=== PATIENT | female | born 1940 | race Two or more races ===

== ENCOUNTER 2017-05-22 06:52 | Outpatient (CLI) | payer OTHER | END 2017-05-22 07:06 | disposition home or self-care (01) | LOC: LAB 06:52 | DX: E06.3 Autoimmune thyroiditis (principal); C50.211 Malignant neoplasm of upper-inner quadrant of right female breast; Z90.11 Acquired absence of right breast and nipple; I10 Essential (primary) hypertension; E78.4 Other hyperlipidemia; E03.8 Other specified hypothyroidism; J45.20 Mild intermittent asthma, uncomplicated; E55.9 Vitamin D deficiency, unspecified; D50.8 Other iron deficiency anemias; D51.8 Other vitamin B12 deficiency anemias; R97.0 Elevated carcinoembryonic antigen [CEA]; R97.8 Other abnormal tumor markers; E78.00 Pure hypercholesterolemia, unspecified; N39.0 Urinary tract infection, site not specified ==

== ENCOUNTER 2017-07-15 13:35 | Inpatient (IN) | payer OTHER ==
[~2017-07-15] VITALS: Ht 61 cm; Wt 5.0 kg
[2017-07-15] MEDS ORDERED: NORVASC5 MG PO (13:57)
[2017-07-15] MEDS ORDERED: REMINYL8 MG PO (13:58)
[2017-07-15] MEDS ORDERED: METFORMIN HCL500 M3 PO (13:58)
[2017-07-15] MEDS ORDERED: PRAVASTATIN SOD20 MG PO (13:58)
[2017-07-22] MEDS ORDERED: AMOX-CLAV 875-1 EACH PO (10:46)
== END 2017-07-22 12:39 | disposition home or self-care (01) | DRG 689 ==
LOC: ER 13:35 → SEC-K 22:49 → MEDI 07-16 17:09
PROC: BW21ZZZ Computerized Tomography (CT Scan) of Abdomen and Pelvis (ICD-10-PCS; principal; 2017-07-16)
PROC: 02HV33Z Insertion of Infusion Device into Superior Vena Cava, Percutaneous Approach (ICD-10-PCS; 2017-07-16)
PROC: B246ZZZ Ultrasonography of Right and Left Heart (ICD-10-PCS; 2017-07-17)
DX: N10 Acute pyelonephritis (principal); A40.1 Sepsis due to streptococcus, group B; E11.9 Type 2 diabetes mellitus without complications; E78.4 Other hyperlipidemia; I10 Essential (primary) hypertension

== ENCOUNTER 2017-07-25 14:31 | Emergency (ER) | payer OTHER ==
[~2017-07-25] VITALS: Ht 157.5 cm; Wt 72.1 kg
[~2017-07-25 14:31] MED LIST: AMOX-CLAV 875-1 EACH PO; METFORMIN HCL500 M3 PO; NORVASC5 MG PO; PRAVASTATIN SOD20 MG PO; REMINYL8 MG PO
== END 2017-07-25 19:10 | disposition home or self-care (01) ==
LOC: ER 14:31
DX: M54.31 Sciatica, right side (principal); R10.13 Epigastric pain

== ENCOUNTER 2017-08-21 10:22 | Outpatient (CLI) | payer OTHER | END 2017-08-21 10:30 | disposition home or self-care (01) | LOC: RAD 10:22 | DX: N20.0 Calculus of kidney (principal) ==

== ENCOUNTER → 2017-08-27 06:33 | Outpatient (CLI) | payer OTHER | END | disposition home or self-care (01) | LOC: LAB 06:33 | DX: C50.211 Malignant neoplasm of upper-inner quadrant of right female breast (principal); Z90.11 Acquired absence of right breast and nipple; I10 Essential (primary) hypertension; E03.8 Other specified hypothyroidism; J45.20 Mild intermittent asthma, uncomplicated; E55.9 Vitamin D deficiency, unspecified; D50.8 Other iron deficiency anemias; D51.8 Other vitamin B12 deficiency anemias; R97.0 Elevated carcinoembryonic antigen [CEA]; R97.8 Other abnormal tumor markers; E78.4 Other hyperlipidemia; R73.09 Other abnormal glucose ==

== ENCOUNTER 2017-09-01 07:21 | Outpatient (CLI) | payer OTHER | END 2017-09-01 07:24 | disposition home or self-care (01) | LOC: SONOGRAMA 07:21 → MAMO-SONO 10:45 | DX: M25.571 Pain in right ankle and joints of right foot (principal) ==

== ENCOUNTER 2017-11-24 07:00 | Outpatient (CLI) | payer OTHER | END 2017-11-24 07:07 | disposition home or self-care (01) | LOC: LAB 07:00 | DX: E11.9 Type 2 diabetes mellitus without complications (principal); I10 Essential (primary) hypertension; E78.00 Pure hypercholesterolemia, unspecified; D64.89 Other specified anemias; E55.9 Vitamin D deficiency, unspecified; R82.79 Other abnormal findings on microbiological examination of urine; C50.211 Malignant neoplasm of upper-inner quadrant of right female breast; Z90.11 Acquired absence of right breast and nipple; E78.4 Other hyperlipidemia; E03.8 Other specified hypothyroidism; J45.20 Mild intermittent asthma, uncomplicated; D50.8 Other iron deficiency anemias; D51.8 Other vitamin B12 deficiency anemias; K90.89 Other intestinal malabsorption; R97.0 Elevated carcinoembryonic antigen [CEA]; R97.8 Other abnormal tumor markers; E11.42 Type 2 diabetes mellitus with diabetic polyneuropathy; N39.0 Urinary tract infection, site not specified ==

== ENCOUNTER → 2017-12-28 06:07 | Outpatient (CLI) | payer OTHER | END | disposition home or self-care (01) | LOC: LAB 06:07 | DX: E11.9 Type 2 diabetes mellitus without complications (principal); Z12.11 Encounter for screening for malignant neoplasm of colon; D64.89 Other specified anemias; E03.8 Other specified hypothyroidism; N95.1 Menopausal and female climacteric states; I10 Essential (primary) hypertension; C51.9 Malignant neoplasm of vulva, unspecified; N30.00 Acute cystitis without hematuria; E83.51 Hypocalcemia; A64 Unspecified sexually transmitted disease; R97.8 Other abnormal tumor markers ==

== ENCOUNTER 2018-01-21 07:39 | Outpatient (CLI) | payer OTHER | END 2018-01-21 09:12 | disposition home or self-care (01) | LOC: MAMO-SONO 07:39 | DX: C50.411 Malignant neoplasm of upper-outer quadrant of right female breast (principal) ==

== ENCOUNTER 2018-02-17 07:09 | Outpatient (CLI) | payer OTHER | END 2018-02-17 07:13 | disposition home or self-care (01) | LOC: LAB 07:09 | DX: C50.211 Malignant neoplasm of upper-inner quadrant of right female breast (principal); Z90.11 Acquired absence of right breast and nipple; E03.8 Other specified hypothyroidism; J45.20 Mild intermittent asthma, uncomplicated; D50.8 Other iron deficiency anemias; R97.0 Elevated carcinoembryonic antigen [CEA]; R97.8 Other abnormal tumor markers; I11.9 Hypertensive heart disease without heart failure; E83.42 Hypomagnesemia; E78.2 Mixed hyperlipidemia ==

== ENCOUNTER 2018-06-14 07:41 | Outpatient (CLI) | payer OTHER | END 2018-06-14 13:26 | disposition home or self-care (01) | LOC: LAB 07:41 | DX: E03.8 Other specified hypothyroidism (principal); E11.9 Type 2 diabetes mellitus without complications; I10 Essential (primary) hypertension; E78.00 Pure hypercholesterolemia, unspecified; C50.211 Malignant neoplasm of upper-inner quadrant of right female breast; Z90.11 Acquired absence of right breast and nipple; J45.20 Mild intermittent asthma, uncomplicated; E55.9 Vitamin D deficiency, unspecified; D50.8 Other iron deficiency anemias; D51.8 Other vitamin B12 deficiency anemias; R97.0 Elevated carcinoembryonic antigen [CEA]; K90.89 Other intestinal malabsorption; E11.8 Type 2 diabetes mellitus with unspecified complications; E78.49 Other hyperlipidemia ==

== ENCOUNTER 2018-10-12 06:40 | Outpatient (CLI) | payer OTHER | END 2018-10-12 06:48 | disposition home or self-care (01) | LOC: LAB 06:40 | DX: I10 Essential (primary) hypertension (principal); E11.9 Type 2 diabetes mellitus without complications; E55.9 Vitamin D deficiency, unspecified; C50.211 Malignant neoplasm of upper-inner quadrant of right female breast; Z90.11 Acquired absence of right breast and nipple; E78.49 Other hyperlipidemia; E03.8 Other specified hypothyroidism; J45.20 Mild intermittent asthma, uncomplicated; D50.8 Other iron deficiency anemias; D51.8 Other vitamin B12 deficiency anemias; K90.89 Other intestinal malabsorption; R97.0 Elevated carcinoembryonic antigen [CEA]; R97.8 Other abnormal tumor markers ==

== ENCOUNTER 2019-01-24 06:33 | Outpatient (CLI) | payer OTHER | END 2019-01-24 06:40 | disposition home or self-care (01) | LOC: LAB 06:33 | DX: C50.211 Malignant neoplasm of upper-inner quadrant of right female breast (principal); Z90.11 Acquired absence of right breast and nipple; I10 Essential (primary) hypertension; E78.49 Other hyperlipidemia; E03.8 Other specified hypothyroidism; J45.20 Mild intermittent asthma, uncomplicated; E55.9 Vitamin D deficiency, unspecified; D50.8 Other iron deficiency anemias; D51.8 Other vitamin B12 deficiency anemias; R97.0 Elevated carcinoembryonic antigen [CEA]; R97.8 Other abnormal tumor markers; E78.00 Pure hypercholesterolemia, unspecified; E11.9 Type 2 diabetes mellitus without complications ==

== ENCOUNTER 2019-01-24 07:21 | Outpatient (CLI) | payer OTHER | END 2019-01-24 07:23 | disposition home or self-care (01) | LOC: MAMO-SONO 07:21 | DX: Z85.3 Personal history of malignant neoplasm of breast (principal) ==

== ENCOUNTER → 2019-06-18 07:08 | Outpatient (CLI) | payer OTHER | END | disposition home or self-care (01) | LOC: LAB 07:08 | DX: D50.8 Other iron deficiency anemias (principal); I10 Essential (primary) hypertension; C50.211 Malignant neoplasm of upper-inner quadrant of right female breast; Z90.11 Acquired absence of right breast and nipple; E78.6 Lipoprotein deficiency; E03.8 Other specified hypothyroidism; J45.20 Mild intermittent asthma, uncomplicated; E55.9 Vitamin D deficiency, unspecified; D51.8 Other vitamin B12 deficiency anemias; R97.0 Elevated carcinoembryonic antigen [CEA]; R97.8 Other abnormal tumor markers; E78.2 Mixed hyperlipidemia ==

== ENCOUNTER 2019-08-08 09:54 | Outpatient (CLI) | payer OTHER | END 2019-08-08 10:05 | disposition home or self-care (01) | LOC: RAD 09:54 | DX: N28.1 Cyst of kidney, acquired (principal); N20.0 Calculus of kidney ==

== ENCOUNTER → 2019-08-08 11:31 | Outpatient (CLI) | payer OTHER | END | disposition home or self-care (01) | LOC: LAB 11:31 | DX: N20.0 Calculus of kidney (principal); E26.09 Other primary hyperaldosteronism ==

== ENCOUNTER 2019-11-25 07:10 | Outpatient (CLI) | payer OTHER | END 2019-11-25 15:00 | disposition home or self-care (01) | LOC: LAB 07:10 | PROVIDERS: ATTEND Internal Medicine Hematology & Oncology | DX: D50.8 Other iron deficiency anemias (principal); I10 Essential (primary) hypertension; D51.8 Other vitamin B12 deficiency anemias; E55.9 Vitamin D deficiency, unspecified; E03.8 Other specified hypothyroidism; C50.919 Malignant neoplasm of unspecified site of unspecified female breast; R97.8 Other abnormal tumor markers; R97.0 Elevated carcinoembryonic antigen [CEA]; C50.211 Malignant neoplasm of upper-inner quadrant of right female breast; Z90.11 Acquired absence of right breast and nipple; E78.49 Other hyperlipidemia; J45.20 Mild intermittent asthma, uncomplicated ==

== ENCOUNTER 2020-01-26 08:24 | Outpatient (CLI) | payer OTHER | END 2020-01-26 08:35 | disposition home or self-care (01) | LOC: MAMO-SONO 08:24 | PROVIDERS: ATTEND Specialist | DX: Z85.3 Personal history of malignant neoplasm of breast (principal); N64.59 Other signs and symptoms in breast ==

== ENCOUNTER 2020-02-08 13:18 | Outpatient (CLI) | payer OTHER | END 2020-02-08 13:19 | disposition home or self-care (01) | LOC: SONOGRAMA 13:18 → MAMO-SONO 14:25 | PROVIDERS: ATTEND Specialist | DX: D24.2 Benign neoplasm of left breast (principal); R92.8 Other abnormal and inconclusive findings on diagnostic imaging of breast ==

== ENCOUNTER → 2020-03-05 06:45 | Outpatient (CLI) | payer OTHER | END | disposition home or self-care (01) | LOC: LAB 06:45 | PROVIDERS: ATTEND Internal Medicine Hematology & Oncology | DX: I10 Essential (primary) hypertension (principal); E78.00 Pure hypercholesterolemia, unspecified; E11.9 Type 2 diabetes mellitus without complications; E03.8 Other specified hypothyroidism; D50.8 Other iron deficiency anemias; C50.919 Malignant neoplasm of unspecified site of unspecified female breast; R97.8 Other abnormal tumor markers; R97.0 Elevated carcinoembryonic antigen [CEA]; C50.211 Malignant neoplasm of upper-inner quadrant of right female breast; Z90.11 Acquired absence of right breast and nipple; E78.49 Other hyperlipidemia; J45.20 Mild intermittent asthma, uncomplicated; E55.9 Vitamin D deficiency, unspecified ==

== ENCOUNTER 2020-08-29 06:49 | Outpatient (CLI) | payer OTHER | END 2020-08-29 06:53 | disposition home or self-care (01) | LOC: MAMO-SONO 06:49 | PROVIDERS: ATTEND Specialist | DX: Z12.31 Encounter for screening mammogram for malignant neoplasm of breast (principal); Z87.898 Personal history of other specified conditions; D24.1 Benign neoplasm of right breast; Z85.3 Personal history of malignant neoplasm of breast ==

== ENCOUNTER 2020-09-24 06:21 | Outpatient (CLI) | payer OTHER | END 2020-09-24 06:22 | disposition home or self-care (01) | LOC: LAB 06:21 | PROVIDERS: ATTEND Internal Medicine Hematology & Oncology | DX: D50.8 Other iron deficiency anemias (principal); I10 Essential (primary) hypertension; R74.02 Elevation of levels of lactic acid dehydrogenase [LDH]; K76.89 Other specified diseases of liver; D51.8 Other vitamin B12 deficiency anemias; C50.919 Malignant neoplasm of unspecified site of unspecified female breast; R97.8 Other abnormal tumor markers; R97.0 Elevated carcinoembryonic antigen [CEA]; C50.211 Malignant neoplasm of upper-inner quadrant of right female breast; Z90.11 Acquired absence of right breast and nipple; E78.5 Hyperlipidemia, unspecified; E03.9 Hypothyroidism, unspecified; J45.20 Mild intermittent asthma, uncomplicated; E55.9 Vitamin D deficiency, unspecified ==

== ENCOUNTER 2020-11-16 07:40 | Outpatient (CLI) | payer OTHER | END 2020-11-16 07:41 | disposition home or self-care (01) | LOC: NUCLEAR 07:40 | PROVIDERS: ATTEND Internal Medicine Cardiovascular Disease | DX: I50.1 Left ventricular failure, unspecified (principal); I25.9 Chronic ischemic heart disease, unspecified | CPT/HCPCS: 78452; 93017; A9500; J0153 ==

== ENCOUNTER 2020-12-13 07:43 | Outpatient (CLI) | payer OTHER | END 2020-12-13 07:46 | disposition home or self-care (01) | LOC: RAD 07:43 | PROVIDERS: ATTEND Internal Medicine Pulmonary Disease | DX: J45.31 Mild persistent asthma with (acute) exacerbation (principal); R06.02 Shortness of breath ==

== ENCOUNTER 2021-04-11 06:34 | Outpatient (CLI) | payer OTHER | END 2021-04-11 06:36 | disposition home or self-care (01) | LOC: LAB 06:34 | PROVIDERS: ATTEND Internal Medicine Hematology & Oncology | DX: E03.8 Other specified hypothyroidism (principal); D50.8 Other iron deficiency anemias; I10 Essential (primary) hypertension; R74.02 Elevation of levels of lactic acid dehydrogenase [LDH]; K76.89 Other specified diseases of liver; D51.8 Other vitamin B12 deficiency anemias; E55.9 Vitamin D deficiency, unspecified; C50.919 Malignant neoplasm of unspecified site of unspecified female breast; R97.8 Other abnormal tumor markers; R97.0 Elevated carcinoembryonic antigen [CEA]; C50.211 Malignant neoplasm of upper-inner quadrant of right female breast; Z90.11 Acquired absence of right breast and nipple; E78.49 Other hyperlipidemia; J45.20 Mild intermittent asthma, uncomplicated ==

== ENCOUNTER 2021-09-02 07:16 | Outpatient (CLI) | payer OTHER | END 2021-09-02 07:18 | disposition home or self-care (01) | LOC: MAMO-SONO 07:16 | PROVIDERS: ATTEND Specialist | DX: Z90.11 Acquired absence of right breast and nipple (principal); Z85.3 Personal history of malignant neoplasm of breast ==

== ENCOUNTER 2021-10-12 07:09 | Outpatient (CLI) | payer OTHER | END 2021-10-12 07:13 | disposition home or self-care (01) | LOC: LAB 07:09 | PROVIDERS: ATTEND Internal Medicine Hematology & Oncology | DX: D50.8 Other iron deficiency anemias (principal); I10 Essential (primary) hypertension; R74.02 Elevation of levels of lactic acid dehydrogenase [LDH]; K76.89 Other specified diseases of liver; C50.919 Malignant neoplasm of unspecified site of unspecified female breast; R97.8 Other abnormal tumor markers; C50.211 Malignant neoplasm of upper-inner quadrant of right female breast; Z90.11 Acquired absence of right breast and nipple; E78.5 Hyperlipidemia, unspecified; E03.8 Other specified hypothyroidism; J45.20 Mild intermittent asthma, uncomplicated; E55.9 Vitamin D deficiency, unspecified; E06.3 Autoimmune thyroiditis; E11.8 Type 2 diabetes mellitus with unspecified complications ==

== ENCOUNTER 2022-04-15 06:37 | Outpatient (CLI) | payer OTHER | END 2022-04-15 06:39 | disposition home or self-care (01) | LOC: LAB 06:37 | PROVIDERS: ATTEND Internal Medicine Hematology & Oncology | DX: D50.8 Other iron deficiency anemias (principal); I10 Essential (primary) hypertension; R74.02 Elevation of levels of lactic acid dehydrogenase [LDH]; K76.89 Other specified diseases of liver; C50.919 Malignant neoplasm of unspecified site of unspecified female breast; R97.8 Other abnormal tumor markers; R97.0 Elevated carcinoembryonic antigen [CEA]; D51.8 Other vitamin B12 deficiency anemias; E55.9 Vitamin D deficiency, unspecified; E03.8 Other specified hypothyroidism; E78.5 Hyperlipidemia, unspecified; E11.9 Type 2 diabetes mellitus without complications; E78.00 Pure hypercholesterolemia, unspecified; I11.9 Hypertensive heart disease without heart failure; E03.9 Hypothyroidism, unspecified ==

== ENCOUNTER 2022-09-25 10:14 | Outpatient (CLI) | payer OTHER | END 2022-09-25 10:24 | disposition home or self-care (01) | LOC: MAMO-SONO 10:14 | PROVIDERS: ATTEND Specialist | DX: Z90.11 Acquired absence of right breast and nipple (principal); Z85.3 Personal history of malignant neoplasm of breast ==

== ENCOUNTER 2022-10-11 07:04 | Outpatient (CLI) | payer OTHER | END 2022-10-11 07:05 | disposition home or self-care (01) | LOC: LAB 07:04 | PROVIDERS: ATTEND Internal Medicine Hematology & Oncology | DX: D50.8 Other iron deficiency anemias (principal); I10 Essential (primary) hypertension; R74.02 Elevation of levels of lactic acid dehydrogenase [LDH]; K76.89 Other specified diseases of liver; D51.8 Other vitamin B12 deficiency anemias; C50.919 Malignant neoplasm of unspecified site of unspecified female breast; R97.8 Other abnormal tumor markers; C50.211 Malignant neoplasm of upper-inner quadrant of right female breast; R97.0 Elevated carcinoembryonic antigen [CEA]; Z90.11 Acquired absence of right breast and nipple; E78.5 Hyperlipidemia, unspecified; E03.8 Other specified hypothyroidism; E55.9 Vitamin D deficiency, unspecified; J45.20 Mild intermittent asthma, uncomplicated ==

== ENCOUNTER 2023-03-30 06:31 | Outpatient (CLI) | payer OTHER ==
[2023-03-30 08:33] LABS: HEMATOCRIT 37.8 % (36.0-45.00); HEMOGLOBIN 12.6 g/dL (12.0-15.00); MEAN CELL VOLUME 89.9 fL (80.00-100.00); MEAN CORPUSCULAR HEMOGLOBIN 29.9 pg (27.00-32.0); MEAN CORPUSCULAR HGB CONC 33.2 g/dl (32.0-36.0); PLATELET COUNT 306 K/uL (150-450); RED CELL DISTRIBUTION WIDTH 13.8 % (11.5-14.5)
[2023-03-30 09:11] LABS: ALBUMIN 3.6 gm/dL (3.4-5.0); BILIRUBIN TOTAL 0.35 mg/dL (0.3-1.2); CREATININE SERUM 0.8 mg/dL (0.55-1.02); GFR 68.5; GLOBULINA 3.6 G/DL (2.4-3.5); POTASSIUM 3.36 mEq/L (3.5-5.1); TOTAL PROTEIN 7.2 gm/dL (6.4-8.2)
[2023-03-30 11:46] LABS: FOLIC ACID 14.52 ng/ml (4.78-20); VITAMIN D3 25 HYDROXY 72.15 ng/ml (30-120)
== END 2023-03-30 06:32 | disposition home or self-care (01) ==
LOC: LAB 06:31
PROVIDERS: ATTEND Internal Medicine Hematology & Oncology
DX: C50.211 Malignant neoplasm of upper-inner quadrant of right female breast (principal); Z90.11 Acquired absence of right breast and nipple; I10 Essential (primary) hypertension; E78.5 Hyperlipidemia, unspecified; E03.8 Other specified hypothyroidism; J45.20 Mild intermittent asthma, uncomplicated; E55.9 Vitamin D deficiency, unspecified

== ENCOUNTER → 2024-01-18 06:41 | Outpatient (CLI) | payer OTHER ==
[2024-01-18 07:16] LABS: HEMATOCRIT 36.8 % (36.0-45.00); HEMOGLOBIN 12.2 g/dL (12.0-15.00); MEAN CELL VOLUME 89.2 fL (80.00-100.00); MEAN CORPUSCULAR HEMOGLOBIN 29.6 pg (27.00-32.0); MEAN CORPUSCULAR HGB CONC 33.2 g/dl (32.0-36.0); PLATELET COUNT 292 K/uL (150-450); RED BLOOD COUNT 4.13 M/uL (4.00-6.00); RED CELL DISTRIBUTION WIDTH 14.6 % (11.5-14.5)
[2024-01-18 08:29] LABS: ALBUMIN 3.5 gm/dL (3.4-5.0); BILIRUBIN TOTAL 0.19 mg/dL (0.3-1.2); CALCIUM 8.7 mg/dL (8.5-10.1); CREATININE SERUM 1.18 mg/dL (0.55-1.02); GFR 43.64; GLOBULINA 3.7 G/DL (2.4-3.5); POTASSIUM 4.05 mEq/L (3.5-5.1); T4 FREE 0.92 NG/ML (0.76-1.46); TOTAL PROTEIN 7.2 gm/dL (6.4-8.2)
[2024-01-18 08:37] LABS: TSH 6.39 uIU/mL (0.358-3.74)
[2024-01-18 11:08] LABS: FOLIC ACID 8.86 ng/ml (4.78-20); VITAMIN D3 25 HYDROXY 68.32 ng/ml (30-120)
[2024-01-19 15:07] LABS: CA 125 3.4 U/mL (0.0-38.1); CA 15-3 11.9 U/mL (0.0-25.0)
== END | disposition home or self-care (01) ==
LOC: LAB 06:41
PROVIDERS: ATTEND Internal Medicine Hematology & Oncology
DX: C50.211 Malignant neoplasm of upper-inner quadrant of right female breast (principal); Z90.11 Acquired absence of right breast and nipple; I10 Essential (primary) hypertension; E78.5 Hyperlipidemia, unspecified; E03.8 Other specified hypothyroidism; J45.20 Mild intermittent asthma, uncomplicated; E55.9 Vitamin D deficiency, unspecified; D50.8 Other iron deficiency anemias; R74.02 Elevation of levels of lactic acid dehydrogenase [LDH]; K76.89 Other specified diseases of liver; R97.8 Other abnormal tumor markers

== ENCOUNTER 2024-01-28 07:04 | Outpatient (CLI) | payer OTHER | END 2024-01-28 07:07 | disposition home or self-care (01) | LOC: SONOGRAMA 07:04 | PROVIDERS: ATTEND Internal Medicine Hematology & Oncology | DX: C50.211 Malignant neoplasm of upper-inner quadrant of right female breast (principal); Z90.11 Acquired absence of right breast and nipple; I10 Essential (primary) hypertension; E03.8 Other specified hypothyroidism; J45.20 Mild intermittent asthma, uncomplicated; E55.9 Vitamin D deficiency, unspecified; N18.32 Chronic kidney disease, stage 3b; E78.5 Hyperlipidemia, unspecified ==

== ENCOUNTER 2024-03-16 07:02 | Outpatient (CLI) | payer OTHER ==
[2024-03-16 08:53] LABS: HEMATOCRIT 38.3 % (36.0-45.00); HEMOGLOBIN 13.1 g/dL (12.0-15.00); MEAN CELL VOLUME 88.4 fL (80.00-100.00); MEAN CORPUSCULAR HEMOGLOBIN 30.3 pg (27.00-32.0); MEAN CORPUSCULAR HGB CONC 34.3 g/dl (32.0-36.0); PLATELET COUNT 274 K/uL (150-450); RED BLOOD COUNT 4.33 M/uL (4.00-6.00); RED CELL DISTRIBUTION WIDTH 14.1 % (11.5-14.5)
[2024-03-16 09:18] LABS: URINE PROT QUANT 24HR 26.5 MG/DL
[2024-03-16 09:19] LABS: URINE PROT QUANT 24 HR 410.75 MG/24HR (42-225)
[2024-03-16 09:53] LABS: ALBUMIN 3.8 gm/dL (3.4-5.0); BILIRUBIN TOTAL 0.35 mg/dL (0.3-1.2); CALCIUM 9.1 mg/dL (8.5-10.1); CREATININE SERUM 1.08 mg/dL (0.55-1.02); GFR 48.33; GLOBULINA 3.6 G/DL (2.4-3.5); POTASSIUM 3.58 mEq/L (3.5-5.1); TOTAL PROTEIN 7.4 gm/dL (6.4-8.2)
[2024-03-16 12:08] LABS: CREATINE CLEARANCE 66.7 ML/MIN (97-137); CREATININE SERUM 1.08 mg/dL (0.6-1.0)
== END 2024-03-16 07:03 | disposition home or self-care (01) ==
LOC: LAB 07:02
PROVIDERS: ATTEND Internal Medicine Hematology & Oncology
DX: C50.211 Malignant neoplasm of upper-inner quadrant of right female breast (principal); Z90.11 Acquired absence of right breast and nipple; E78.5 Hyperlipidemia, unspecified; E03.8 Other specified hypothyroidism; J45.20 Mild intermittent asthma, uncomplicated; I10 Essential (primary) hypertension; E55.9 Vitamin D deficiency, unspecified; D50.8 Other iron deficiency anemias; R74.02 Elevation of levels of lactic acid dehydrogenase [LDH]; K76.89 Other specified diseases of liver; D63.1 Anemia in chronic kidney disease

== ENCOUNTER 2024-03-21 09:46 | Outpatient (CLI) | payer OTHER | END 2024-03-21 10:00 | disposition home or self-care (01) | LOC: SONOGRAMA 09:46 | PROVIDERS: ATTEND Specialist | DX: Q66.51 Congenital pes planus, right foot (principal); Q66.52 Congenital pes planus, left foot; M19.072 Primary osteoarthritis, left ankle and foot; M19.071 Primary osteoarthritis, right ankle and foot; M65.871 Other synovitis and tenosynovitis, right ankle and foot ==

== ENCOUNTER 2024-04-07 07:02 | Outpatient (CLI) | payer OTHER | END 2024-04-07 07:14 | disposition home or self-care (01) | LOC: TOM 07:02 | PROVIDERS: ATTEND Internal Medicine Hematology & Oncology | DX: C50.211 Malignant neoplasm of upper-inner quadrant of right female breast (principal); Z90.11 Acquired absence of right breast and nipple; I10 Essential (primary) hypertension; E78.5 Hyperlipidemia, unspecified; E03.8 Other specified hypothyroidism; J45.20 Mild intermittent asthma, uncomplicated; E55.9 Vitamin D deficiency, unspecified; N18.32 Chronic kidney disease, stage 3b; N20.0 Calculus of kidney ==

== ENCOUNTER 2024-04-29 07:04 | Outpatient (CLI) | payer OTHER | END 2024-04-29 07:09 | disposition home or self-care (01) | LOC: TOM 07:04 | PROVIDERS: ATTEND Urology | DX: N20.1 Calculus of ureter (principal) ==

== ENCOUNTER 2024-05-28 07:24 | Outpatient (CLI) | payer OTHER ==
[2024-05-28 09:06] LABS: PH,URINE 5.5 (5.0-8.0); URINE APPEARANCE Cloudy; URINE BILIRRUBIN Negative (NEGATIVE); URINE BLOOD Negative; URINE COLOR Yellow; URINE GLUCOSE Negative (NEGATIVE); URINE KETONE Negative (NEGATIVE); URINE LEUKOCYTE Moderate; URINE NITRATE Negative; URINE PROTEIN 30 (NEGATIVE); URINE UROBILINOGEN 0.2 E.U./dl
[2024-05-28 09:10] LABS: HEMATOCRIT 40.3 % (36.0-45.00); HEMOGLOBIN 13.4 g/dL (12.0-15.00); MEAN CELL VOLUME 89.6 fL (80.00-100.00); MEAN CORPUSCULAR HEMOGLOBIN 29.8 pg (27.00-32.0); MEAN CORPUSCULAR HGB CONC 33.2 g/dl (32.0-36.0); PLATELET COUNT 263 K/uL (150-450); RED BLOOD COUNT 4.49 M/uL (4.00-6.00); RED CELL DISTRIBUTION WIDTH 14.4 % (11.5-14.5); URINE BACTERIA 254.5 uL (0.0-1933); URINE EPITHELIAL CELLS 4.5 uL (0.0-38.8); URINE RBC 4.4 uL (0.0-20.8); URINE WBC 113.8 uL (0.0-23.2)
[2024-05-28 09:41] LABS: ALBUMIN 3.8 gm/dL (3.4-5.0); BILIRUBIN TOTAL 0.33 mg/dL (0.3-1.2); CALCIUM 9.6 mg/dL (8.5-10.1); CHOL HDL RATIO 3.3 (0-5.0); GFR 52.82; GLOBULINA 3.5 G/DL (2.4-3.5); POTASSIUM 4.12 mEq/L (3.5-5.1); T4 TOTAL 9.03 UG/DL (4.8-13.9); TOTAL PROTEIN 7.3 gm/dL (6.4-8.2); TSH 1.66 uIU/mL (0.358-3.74)
[2024-05-28 10:30] LABS: URINE CAST 0.44 uL (0.0-1.40)
[2024-05-30 12:06] LABS: FOLIC ACID 10.81 ng/ml (4.78-20); T3 TOTAL 1.36 ng/ml (0.846-2.02); VITAMIN D3 25 HYDROXY 67.95 ng/ml (30-120)
== END 2024-05-28 07:34 | disposition home or self-care (01) ==
LOC: LAB 07:24
PROVIDERS: ATTEND Internal Medicine Hematology & Oncology
DX: C50.211 Malignant neoplasm of upper-inner quadrant of right female breast (principal); Z90.11 Acquired absence of right breast and nipple; I10 Essential (primary) hypertension; E78.5 Hyperlipidemia, unspecified; E03.8 Other specified hypothyroidism; J45.20 Mild intermittent asthma, uncomplicated; E55.9 Vitamin D deficiency, unspecified; N18.32 Chronic kidney disease, stage 3b; N20.0 Calculus of kidney; N39.0 Urinary tract infection, site not specified; D50.8 Other iron deficiency anemias; R74.02 Elevation of levels of lactic acid dehydrogenase [LDH]; K76.89 Other specified diseases of liver; D51.8 Other vitamin B12 deficiency anemias; I11.9 Hypertensive heart disease without heart failure; E78.1 Pure hyperglyceridemia; E11.9 Type 2 diabetes mellitus without complications; E03.9 Hypothyroidism, unspecified; E53.9 Vitamin B deficiency, unspecified

== ENCOUNTER → 2024-09-12 | Outpatient (CLI) | payer OTHER ==
[2024-09-12 07:41] LABS: URINE APPEARANCE Clear; URINE BILIRRUBIN Negative (NEGATIVE); URINE BLOOD Negative; URINE COLOR Yellow; URINE GLUCOSE Negative (NEGATIVE); URINE KETONE Negative (NEGATIVE); URINE LEUKOCYTE Large; URINE NITRATE Negative; URINE PROTEIN 30 (NEGATIVE)
[2024-09-12 07:44] LABS: EOS # 0.51 (0.04-0.54); EOS % 7.3 % (0.7-7.0); HEMATOCRIT 38.3 % (34.1-44.9); HEMOGLOBIN 12.4 g/dL (11.2-15.7); LYMPH # 1.46 (1.18-3.74); LYMPH % 20.8 % (19.3-53.1); MEAN CORPUSCULAR HEMOGLOBIN 29.6 pg (25.6-32.2); MONO # 0.59 (0.24-0.82); MONO % 8.4 % (4.7-12.5); NEUT # 4.38 (1.56-6.13); NEUT % 62.4 % (34.0-71.1); PLATELET COUNT 274 K/uL (163-369); RED BLOOD COUNT 4.19 M/uL (3.93-5.22); RED CELL DISTRIBUTION WIDTH 13.2 % (11.6-14.4)
[2024-09-12 07:44] LABS: URINE BACTERIA 353.7 uL (0.0-1933); URINE EPITHELIAL CELLS 3.3 uL (0.0-38.8); URINE RBC 3.9 uL (0.0-20.8); URINE WBC 144.4 uL (0.0-23.2)
[2024-09-12 07:45] LABS: URINE CAST 0.29 uL (0.0-1.40)
[2024-09-12 08:14] LABS: ALBUMIN 3.7 gm/dL (3.4-5.0); CALCIUM 9.3 mg/dL (8.5-10.1); CHOL HDL RATIO 3.2 (0-5.0); CREATININE SERUM 1.3 mg/dL (0.55-1.02); GFR 38.93; PHOSPHOROUS 2.5 mg/dL (2.5-4.9); POTASSIUM 3.49 mEq/L (3.5-5.1); URIC ACID 5.5 mg/dL (2.5-7.5)
[2024-09-12 08:36] LABS: URINE PROT QUANT 24HR 22.3 MG/DL
[2024-09-12 08:37] LABS: URINE PROT QUANT 24 HR 323.35 MG/24HR (42-225)
[2024-09-12 08:41] LABS: CREATINE CLEARANCE 63.6 ML/MIN (97-137); CREATININE SERUM 1.3 mg/dL (0.6-1.0)
[2024-09-14 11:12] LABS: a:g ratio 1.2 (0.7-1.7); alpha 1 g 0.2 g/dL (0.0-0.4); alpha 2 0.9 g/dL (0.4-1.0); globulin t 3.1 g/dL (2.2-3.9); m spike Not Observed g/dL (Not Observed); prot total 6.8 g/dL (6.0-8.5)
[2024-09-14 19:12] LABS: albu 48.8 % (.); alph 2 9.9 % (.); beta 19.8 % (.); gam 15.5 % (.); m spi 0 % (Not Observed); prot 34.4 mg/dL (Not Estab.)
== END | disposition home or self-care (01) ==
LOC: LAB 06:59
PROVIDERS: ATTEND Internal Medicine Nephrology
DX: R80.9 Proteinuria, unspecified (principal); I10 Essential (primary) hypertension; E11.22 Type 2 diabetes mellitus with diabetic chronic kidney disease; E78.5 Hyperlipidemia, unspecified

== ENCOUNTER 2024-09-29 10:05 | Outpatient (CLI) | payer OTHER | END 2024-09-29 10:09 | disposition home or self-care (01) | LOC: MAMO-SONO 10:05 | PROVIDERS: ATTEND Specialist | DX: Z85.3 Personal history of malignant neoplasm of breast (principal); Z90.11 Acquired absence of right breast and nipple ==

== ENCOUNTER → 2024-11-24 08:54 | Outpatient (CLI) | payer OTHER ==
[2024-11-24 10:17] LABS: BASO % 0.8 % (0.1-1.2); EOS # 0.64 (0.04-0.54); EOS % 7.7 % (0.7-7.0); LYMPH # 1.68 (1.18-3.74); LYMPH % 20.1 % (19.3-53.1); MEAN PLATELET VOLUME 9.00 fl (9.4-12.4); MONO # 0.63 (0.24-0.82); MONO % 7.5 % (4.7-12.5); NEUT # 5.30 (1.56-6.13); NEUT % 63.5 % (34.0-71.1); RED CELL DISTRIBUTION WIDTH 13.0 % (11.6-14.4)
[2024-11-24 10:51] LABS: ALT/SGPT 26.0 U/L (12-78); AST/SGOT 18.0 U/L (15-37); BILIRUBIN TOTAL 0.37 mg/dL (0.3-1.2); BUN CREA RATIO 21.0 (7.0-25.0); CHOL HDL RATIO 3.1 (0-5.0); CREATININE SERUM 1.09 mg/dL (0.55-1.02); FE 81.0 ug/dl (50-170); GFR 47.71; GLOBULINA 3.6 G/DL (2.4-3.5); GLUCOSE FASTING 94.0 mg/dL (65-100); HDL 42.0 mg/dl (40-60); LDH 162.0 U/L (84-246); LDL 70.0 mg/dl (0-130); OSMOLALITY SERUM 287.0 MOSM/KG (275-295); T4 FREE 1.1 NG/ML (0.76-1.46); TSH 1.22 uIU/mL (0.358-3.74); VLDL 18.0 (0-39)
[2024-11-24 13:03] LABS: FOLIC ACID > 20.00 ng/ml (4.78-20)
[2024-11-25 09:08] LABS: CA 125 5.5 U/mL (0.0-38.1); CA 15-3 9.9 U/mL (0.0-25.0); CA 19-9 12.0 U/mL (0-35)
== END | disposition home or self-care (01) ==
LOC: LAB 08:54
PROVIDERS: ATTEND Internal Medicine Hematology & Oncology
DX: E78.2 Mixed hyperlipidemia (principal); E06.3 Autoimmune thyroiditis; E11.8 Type 2 diabetes mellitus with unspecified complications; C50.211 Malignant neoplasm of upper-inner quadrant of right female breast; Z90.11 Acquired absence of right breast and nipple; I10 Essential (primary) hypertension; E78.5 Hyperlipidemia, unspecified; E03.8 Other specified hypothyroidism; J45.20 Mild intermittent asthma, uncomplicated; E55.9 Vitamin D deficiency, unspecified; N18.32 Chronic kidney disease, stage 3b; N20.0 Calculus of kidney; R74.02 Elevation of levels of lactic acid dehydrogenase [LDH]; K76.89 Other specified diseases of liver; D50.8 Other iron deficiency anemias; C50.919 Malignant neoplasm of unspecified site of unspecified female breast; C25.9 Malignant neoplasm of pancreas, unspecified; C56.9 Malignant neoplasm of unspecified ovary; R97.0 Elevated carcinoembryonic antigen [CEA]; E11.9 Type 2 diabetes mellitus without complications; E78.1 Pure hyperglyceridemia

== ENCOUNTER 2025-03-18 07:05 | Outpatient (CLI) | payer OTHER ==
[2025-03-18 08:22] LABS: BASO % 0.7 % (0.1-1.2); EOS # 0.45 (0.04-0.54); EOS % 4.6 % (0.7-7.0); LYMPH # 1.59 (1.18-3.74); LYMPH % 16.4 % (19.3-53.1); MEAN PLATELET VOLUME 9.10 fl (9.4-12.4); MONO # 0.90 (0.24-0.82); MONO % 9.3 % (4.7-12.5); NEUT # 6.66 (1.56-6.13); NEUT % 68.7 % (34.0-71.1); RED CELL DISTRIBUTION WIDTH 13.5 % (11.6-14.4)
[2025-03-18 08:27] LABS: URINE APPEARANCE Clear; URINE BILIRRUBIN Negative (NEGATIVE); URINE BLOOD Negative; URINE COLOR Yellow; URINE GLUCOSE Negative (NEGATIVE); URINE KETONE Negative (NEGATIVE); URINE LEUKOCYTE Trace; URINE NITRATE Negative; URINE PROTEIN Trace (NEGATIVE); URINE UROBILINOGEN 0.2 E.U./dl
[2025-03-18 08:38] LABS: URINE BACTERIA 34.3 uL (0.0-1933); URINE EPITHELIAL CELLS 3.2 uL (0.0-38.8); URINE RBC 2.6 uL (0.0-20.8); URINE WBC 18.4 uL (0.0-23.2)
[2025-03-18 08:39] LABS: URINE CAST 0.99 uL (0.0-1.40)
[2025-03-18 09:22] LABS: % SATURACION 19.0 % (15-50); ALT/SGPT 30.0 U/L (12-78); AST/SGOT 17.0 U/L (15-37); BILIRUBIN TOTAL 0.48 mg/dL (0.3-1.2); BUN CREA RATIO 26.0 (7.0-25.0); CHOL HDL RATIO 2.7 (0-5.0); CREATININE SERUM 1.22 mg/dL (0.55-1.02); FE 67.0 ug/dl (50-170); GFR 41.89; GLOBULINA 3.3 G/DL (2.4-3.5); GLUCOSE FASTING 115.0 mg/dL (65-100); HDL 49.0 mg/dl (40-60); LDH 182.0 U/L (84-246); LDL 67.0 mg/dl (0-130); OSMOLALITY SERUM 293.0 MOSM/KG (275-295); VLDL 18.0 (0-39)
[2025-03-20 09:54] LABS: FOLIC ACID 16.62 ng/ml (4.78-20); VITAMIN D3 25 HYDROXY 61.1 ng/ml (30-120)
[2025-03-21 06:06] LABS: CA 15-3 9.3 U/mL (0.0-25.0); CA 19-9 12.0 U/mL (0-35)
[2025-03-21 14:07] LABS: CA 125 6.1 U/mL (0.0-38.1)
== END 2025-03-18 07:13 | disposition home or self-care (01) ==
LOC: LAB 07:05
PROVIDERS: ATTEND Internal Medicine Hematology & Oncology
DX: C50.211 Malignant neoplasm of upper-inner quadrant of right female breast (principal); Z90.11 Acquired absence of right breast and nipple; I10 Essential (primary) hypertension; E78.5 Hyperlipidemia, unspecified; E03.8 Other specified hypothyroidism; J45.20 Mild intermittent asthma, uncomplicated; E55.9 Vitamin D deficiency, unspecified; N18.32 Chronic kidney disease, stage 3b; N20.0 Calculus of kidney; D50.8 Other iron deficiency anemias; R74.02 Elevation of levels of lactic acid dehydrogenase [LDH]; K76.89 Other specified diseases of liver; C50.919 Malignant neoplasm of unspecified site of unspecified female breast; C56.9 Malignant neoplasm of unspecified ovary; C25.9 Malignant neoplasm of pancreas, unspecified; E78.00 Pure hypercholesterolemia, unspecified; E11.9 Type 2 diabetes mellitus without complications; E11.40 Type 2 diabetes mellitus with diabetic neuropathy, unspecified; E51.9 Thiamine deficiency, unspecified